=== PATIENT | male | born 1950 | race Caucasian/White ===

== ENCOUNTER 2020-09-10 07:49 | Emergency (ER) | payer MEDICARE, OTHER ==
[~2020-09-10] VITALS: Ht 180.3 cm; Wt 113.4 kg
[2020-09-10] MEDS ORDERED: FLOMAX0.4 MG PO (08:19)
== END 2020-09-10 09:00 | disposition home or self-care (01) ==
LOC: FSED 07:52
DX: R33.9 Retention of urine, unspecified (principal); I10 Essential (primary) hypertension; Z85.828 Personal history of other malignant neoplasm of skin
CPT/HCPCS: 51700; 81003; 99283